=== PATIENT | female | born 1985 | race Caucasian/White ===

== ENCOUNTER 2025-06-28 21:53 | Emergency (ER) | payer OTHER, MEDICAID ==
[~2025-06-28] VITALS: Ht 165.1 cm; Wt 134.0 kg
[2025-06-28 21:56] VITALS: BP 149/104; PULSE 64; RESP 16; TEMP 36.9; O2SAT 99
[2025-06-28] MEDS: ACETAMINOPHEN 500MG TABLET PO ONE (23:58)
[2025-06-29] MEDS ORDERED: IBUP-1455 MT (01:16)
== END 2025-06-29 01:31 ==
LOC: ER 21:53
DX: S09.90XA Unspecified injury of head, initial encounter (principal); S40.012A Contusion of left shoulder, initial encounter; S60.222A Contusion of left hand, initial encounter; I10 Essential (primary) hypertension; W03.XXXA Other fall on same level due to collision with another person, initial encounter; Y93.89 Activity, other specified; Y92.89 Other specified places as the place of occurrence of the external cause; Y99.8 Other external cause status
CPT/HCPCS: 73030; 73130; 99284